=== PATIENT | male | born 1945 | race Caucasian/White ===

== ENCOUNTER → 2016-12-13 | Outpatient (CLI) | payer MEDICARE ==
[~2016-12-13] MED LIST: ADVIL,NUPRIN,M200 MG PO; ASPIR-LOW81 MG PO; ASPIRIN EC325 MG PO; ASPIRIN325 MG PO; Aspirin Chewable PO; CEFTIN500 MG PO; CLOPIDOGREL75 MG PO; COREG6.25 M1 PO; Coreg PO; GLUCOTROL5 MG PO; Glucotrol PO; HYZAAR 100-21 TABLET PO; LANTUS 10100 UNITS/ SC; LANTUS 3 M100 UNITS1 SC; LIPITOR40 MG PO; LISINOPRIL5 MG PO; METFORMIN HCL500 MG PO; PRAVASTATIN SOD40 MG PO; PROTONIX40 MG PO; Xanax PO
== END | disposition home or self-care (01) ==
LOC: CDC 14:29
DX: I25.2 Old myocardial infarction (principal); R94.31 Abnormal electrocardiogram [ECG] [EKG]
CPT/HCPCS: 93000

== ENCOUNTER 2017-03-28 14:42 | Inpatient (IN) | payer OTHER, MEDICARE ==
[~2017-03-28] VITALS: Ht 188 cm; Wt 97.7 kg
[2017-03-28 15:28] LABS: HEMATOCRIT 37.5 % (38.0-50.0); MCH 29.6 PG (29.0-34.0); MCHC 33.1 G/DL (30.0-36.0); MCV 89.5 FL (86-99); MEAN PLAT.VOLUME 9.1 uM^3 (9.0-12.4); PLATELET COUNT 282 K/uL (156-360); RBC DIS.WIDTH-CV 13.2 % (11.8-14.6); RBC DIS.WIDTH-SD 43.2 % (39-53); RED BLOOD COUNT 4.19 M/uL (4.00-5.50); WHITE BLOOD COUNT 8.8 K/uL (4.1-10.2)
[2017-03-28 15:36] LABS: CHLORIDE 108 mEq/L (99-109); SODIUM 134 mEq/L (136-147)
[2017-03-28 15:38] LABS: GLUCOSE 130 mg/dL (70-99)
[2017-03-28 15:39] LABS: ANION GAP 7 MEQ/L (2-14)
[2017-03-28 15:42] LABS: GFR ESTIMATE (CALCULATED) 37 mL/min/
[2017-03-28 15:43] LABS: UREA NITROGEN (BUN) 43 mg/dL (9-23)
[2017-03-28] MEDS ORDERED: LIPITOR10 MG PO (17:49)
[2017-03-28] MEDS ORDERED: COREG3.125 M1 PO (17:50)
[2017-03-28] MEDS ORDERED: ARICEPT5 MG PO (17:51)
[2017-03-28] MEDS ORDERED: LANTUS 3 M100 UNITS1 SC (17:55)
[2017-03-28] MEDS ORDERED: NEURONTIN600 MG PO (17:57)
[2017-03-28] MEDS ORDERED: LISINOPRIL10 MG PO (17:59)
[2017-03-28] MEDS ORDERED: MUPIROCIN22 GM TP (18:01)
[2017-03-28] MEDS ORDERED: NITROSTAT0.4 MG SL (18:02)
[2017-03-28] MEDS ORDERED: ZOLOFT50 MG PO (18:04)
[2017-03-28] MEDS ORDERED: NOVOLOG PE100 UNITS/ SC (18:05)
[2017-03-28] MEDS ORDERED: BACTRIM,SEPT1 TABLET PO (18:11)
[2017-03-28 19:22] LABS: SAMPLE HEMOLYSIS CHECK 0; SAMPLE ICTERIC CHECK 0; SAMPLE LIPEMIA CHECK 0
[2017-03-28 19:28] LABS: HDL CHOLESTEROL 31 MG/DL (Desirable>=40); LDL CHOLESTEROL 42 mg/dL (Desirable<100); NON-HDL CHOLESTEROL 64 mg/dL (Desirable<160); TOTAL CHOLESTEROL 95 mg/dL (Desirable<200); TRIGLYCERIDES 111 MG/DL (Normal: <150)
[2017-03-28 20:01] LABS: Estimated Average Glucose 194 mg/dL (70-123); HEMOGLOBIN A1c (GLYCOHEMOGLOB) 8.4 % HGB (Below 5.7)
[2017-03-28 20:32] LABS: ADD MIUA? YES; BILIRUBIN NEGATIVE; BLOOD SMALL; COLOR YELLOW ((YELLOW)); GLUCOSE (STRIP) 50; KETONES NEGATIVE; LEUKOCYTES NEGATIVE; NITRITE NEGATIVE; PROTEIN (STRIP) 30; SPECIFIC GRAVITY 1.014 (1.000-1.030); UROBILINOGEN 0.2 MG/DL (0.2-1.0)
[2017-03-28 20:53] LABS: EPITHELIAL CELLS RARE /HPF; MUCUS NONE SEEN /LPF; RED BLOOD CELLS 0-5 /HPF (0-5)
[2017-03-28 20:54] LABS: BACTERIA RARE /HPF
[2017-03-28 21:32] VITALS: BP 129/67
[2017-03-28 22:34] LABS: POINT-OF-CARE METER ID UU14174225
[2017-03-28 23:55] VITALS: BP 164/83
[2017-03-29 04:14] VITALS: BP 162/82
[2017-03-29 05:56] LABS: HEMATOCRIT 38.9 % (38.0-50.0); MCH 29.6 PG (29.0-34.0); MCHC 32.4 G/DL (30.0-36.0); MCV 91.3 FL (86-99); MEAN PLAT.VOLUME 9.1 uM^3 (9.0-12.4); PLATELET COUNT 280 K/uL (156-360); RBC DIS.WIDTH-CV 13.3 % (11.8-14.6); RBC DIS.WIDTH-SD 44.4 % (39-53); RED BLOOD COUNT 4.26 M/uL (4.00-5.50); WHITE BLOOD COUNT 7.4 K/uL (4.1-10.2)
[2017-03-29 06:39] LABS: ALKALINE PHOSPHATASE 52 IU/L (3-129); ANION GAP 8 MEQ/L (2-14); CHLORIDE 103 MEQ/L (99-109); GFR ESTIMATE (CALCULATED) 46 mL/min/; GLUCOSE 137 mg/dL (70-99); POTASSIUM 5.3 MEQ/L (3.7-5.4); SAMPLE HEMOLYSIS CHECK 0; SAMPLE ICTERIC CHECK 0; SAMPLE LIPEMIA CHECK 0; SODIUM 133 MEQ/L (136-147); TOTAL BILIRUBIN 0.4 MG/DL (0.0-1.0); UREA NITROGEN (BUN) 39 mg/dL (9-23)
[2017-03-29 07:28] VITALS: BP 111/63
[2017-03-29 11:40] VITALS: BP 103/60
[2017-03-29 11:56] LABS: POINT-OF-CARE METER ID UU13113717
[2017-03-29 15:02] VITALS: BP 116/57
[2017-03-29 16:48] LABS: POINT-OF-CARE METER ID UU13113717
[2017-03-29 17:16] LABS: HDL CHOLESTEROL 29 MG/DL (Desirable>=40); LDL CHOLESTEROL 35 mg/dL (Desirable<100); NON-HDL CHOLESTEROL 64 mg/dL (Desirable<160); TOTAL CHOLESTEROL 93 mg/dL (Desirable<200); TRIGLYCERIDES 147 MG/DL (Normal: <150)
[2017-03-29 20:05] VITALS: BP 121/65
[2017-03-29 21:17] LABS: POINT-OF-CARE METER ID UU14174225
[2017-03-30 00:06] VITALS: BP 93/51
[2017-03-30 03:41] VITALS: BP 82/52
[2017-03-30 06:10] LABS: EOSINOPHIL COUNT 0.1 K/uL (0-0.3); HEMATOCRIT 36.9 % (38.0-50.0); IMMATURE GRANULOCYTE (%) 0.5 % (0.0-0.7); INSTRUMENT ABS NEUTROPHIL CT 3.7 K/uL; LYMPHOCYTE COUNT 0.8 K/uL (1.0-2.8); MCHC 32.2 G/DL (30.0-36.0); MEAN PLAT.VOLUME 8.9 uM^3 (9.0-12.4); MONOCYTE (%) 16.1 % (3-12); MONOCYTE COUNT 0.9 K/uL (0-0.8); NEUTROPHIL (%) 66.8 % (45-76); NEUTROPHIL COUNT 3.7 K/uL (1.8-6.4); PLATELET COUNT 248 K/uL (156-360); RBC DIS.WIDTH-CV 13.3 % (11.8-14.6); RBC DIS.WIDTH-SD 43.9 % (39-53); WHITE BLOOD COUNT 5.5 K/uL (4.1-10.2)
[2017-03-30 06:37] LABS: ANION GAP 6 MEQ/L (2-14); CHLORIDE 106 MEQ/L (99-109); GFR ESTIMATE (CALCULATED) 58 mL/min/; GLUCOSE 104 mg/dL (70-99); POTASSIUM 5.1 MEQ/L (3.7-5.4); SAMPLE HEMOLYSIS CHECK 0; SAMPLE ICTERIC CHECK 0; SAMPLE LIPEMIA CHECK 0; SODIUM 135 MEQ/L (136-147); UREA NITROGEN (BUN) 30 mg/dL (9-23)
[2017-03-30 07:54] VITALS: BP 106/64
[2017-03-30 11:40] VITALS: BP 110/65
[2017-03-30 12:32] LABS: POINT-OF-CARE METER ID UU13113717
[2017-03-30] MEDS ORDERED: DOXYCYCLINE HY100 M3 PO (13:44)
[2017-03-30] MEDS ORDERED: PRAVASTATIN SOD40 MG PO (13:44)
== END 2017-03-30 15:15 | disposition home or self-care (01) | DRG 65 ==
LOC: EME 14:42 → 5SOUTH 18:23 → EDOF 18:23 → ENRESERV 18:23 → 5SOUTH 21:12 → ENPENDDIS 03-30 → 5SOUTH 03-30 15:15
PROVIDERS: Hospitalist; Internal Medicine
DX: I63.541 Cerebral infarction due to unspecified occlusion or stenosis of right cerebellar artery (principal); N17.9 Acute kidney failure, unspecified; E87.0 Hyperosmolality and hypernatremia; C85.90 Non-Hodgkin lymphoma, unspecified, unspecified site; R27.0 Ataxia, unspecified; E11.51 Type 2 diabetes mellitus with diabetic peripheral angiopathy without gangrene; F39 Unspecified mood [affective] disorder; E78.5 Hyperlipidemia, unspecified; R47.81 Slurred speech; I10 Essential (primary) hypertension; T63.301D Toxic effect of unspecified spider venom, accidental (unintentional), subsequent encounter; I25.10 Atherosclerotic heart disease of native coronary artery without angina pectoris; J44.9 Chronic obstructive pulmonary disease, unspecified; D64.9 Anemia, unspecified; E11.65 Type 2 diabetes mellitus with hyperglycemia; Z95.1 Presence of aortocoronary bypass graft; I69.354 Hemiplegia and hemiparesis following cerebral infarction affecting left non-dominant side; G93.89 Other specified disorders of brain; I44.0 Atrioventricular block, first degree; I45.10 Unspecified right bundle-branch block; I65.29 Occlusion and stenosis of unspecified carotid artery; Z80.8 Family history of malignant neoplasm of other organs or systems; Z79.02 Long term (current) use of antithrombotics/antiplatelets; Z79.4 Long term (current) use of insulin; Z87.442 Personal history of urinary calculi; Z87.891 Personal history of nicotine dependence; R29.810 Facial weakness; I69.398 Other sequelae of cerebral infarction; R27.8 Other lack of coordination; R13.10 Dysphagia, unspecified; Z79.82 Long term (current) use of aspirin; I25.2 Old myocardial infarction
CPT/HCPCS: 70450; 70551; 71020; 80048; 80053; 80061; 81003; 82436; 82948; 83036; 84133; 84300; 85025; 85027; 87070; 87075; 87205; 92523 GN; 92610 GN; 93005; 93306; 93880; 99281; 99285; J1644; J1815; J2405; J7030

== ENCOUNTER → 2017-05-19 | Outpatient (CLI) | payer MEDICARE ==
[~2017-05-19] MED LIST changes: +ARICEPT5 MG PO; +BACTRIM,SEPT1 TABLET PO; +COREG3.125 M1 PO; +DOXYCYCLINE HY100 M3 PO; +LIPITOR10 MG PO; +LISINOPRIL10 MG PO; +MUPIROCIN22 GM TP; +NEURONTIN600 MG PO; +NITROSTAT0.4 MG SL; +NOVOLOG PE100 UNITS/ SC; +ZOLOFT50 MG PO
== END | disposition home or self-care (01) ==
LOC: CDC 14:26
DX: Z01.810 Encounter for preprocedural cardiovascular examination (principal); I25.2 Old myocardial infarction; R94.31 Abnormal electrocardiogram [ECG] [EKG]
CPT/HCPCS: 93000

== ENCOUNTER 2017-10-27 14:13 | Emergency (ER) | payer OTHER, MEDICARE ==
[~2017-10-27] VITALS: Ht 188 cm; Wt 51.4 kg
[2017-10-27 15:04] LABS: BASOPHIL (%) 0.6 % (0-1); BASOPHIL COUNT 0.1 K/uL (0-0.1); EOSINOPHIL (%) 2.2 % (0-5); EOSINOPHIL COUNT 0.2 K/uL (0-0.3); HEMATOCRIT 34.2 % (38.0-50.0); HEMOGLOBIN 11.1 G/DL (12.5-16.6); IMMATURE GRANULOCYTE (%) 0.5 % (0.0-0.7); LYMPHOCYTE (%) 7.9 % (15-42); LYMPHOCYTE COUNT 0.6 K/uL (1.0-2.8); MCH 28.4 PG (29.0-34.0); MCHC 32.5 G/DL (30.0-36.0); MCV 87.5 FL (86-99); MONOCYTE (%) 13.7 % (3-12); MONOCYTE COUNT 1.1 K/uL (0-0.8); NEUTROPHIL (%) 75.1 % (45-76); NEUTROPHIL COUNT 5.8 K/uL (1.8-6.4); PLATELET COUNT 324 K/uL (156-360); RBC DIS.WIDTH-CV 15.4 % (11.8-14.6); RBC DIS.WIDTH-SD 49.1 % (39-53); RED BLOOD COUNT 3.91 M/uL (4.00-5.50); WHITE BLOOD COUNT 7.8 K/uL (4.1-10.2)
[2017-10-27 15:12] LABS: INTER. NORMALIZED RATIO 1.2
[2017-10-27 15:14] LABS: PTT 33.6 SEC (25-37)
[2017-10-27 15:18] LABS: ALBUMIN 3.6 g/dL (3.2-4.8); CHLORIDE 106 mEq/L (99-109); MAGNESIUM 2.3 mg/dL (1.3-2.7); POTASSIUM 4.4 mEq/L (3.7-5.4); SODIUM 137 mEq/L (136-147)
[2017-10-27 15:20] LABS: GLUCOSE 135 mg/dL (70-99); TOTAL PROTEIN 7.3 g/dL (6.4-8.3)
[2017-10-27 15:22] LABS: TOTAL BILIRUBIN 0.3 mg/dL (0.0-1.0)
[2017-10-27 15:24] LABS: ALKALINE PHOSPHATASE 67 IU/L (3-129); CREATININE 1.3 mg/dL (0.6-1.3); GFR ESTIMATE (CALCULATED) 58 mL/min/ (58.99-99999)
[2017-10-27 15:25] LABS: TROP-I INTERPRETATION NEGATIVE; TROPONIN-I < 0.01 ng/mL (0.0-0.30); UREA NITROGEN (BUN) 29 mg/dL (9-23)
[2017-10-27 15:26] LABS: AST (GOT) 8 IU/L (2-34)
[2017-10-27 15:27] LABS: ALT (GPT) 9 IU/L (3-49); CREATINE KINASE 30 IU/L (1-294); TOTAL CK 30 IU/L (1-294)
[2017-10-27 15:33] LABS: CK-MB 1.2 ng/mL (0.0-4.9)
[2017-10-27] MEDS ORDERED: MECLIZINE HCL25 MG PO (19:24)
[2017-10-27 20:03] VITALS: BP 121/65
== END 2017-10-27 20:04 | disposition home or self-care (01) ==
LOC: EME 14:13
PROVIDERS: Emergency Medicine
DX: R42 Dizziness and giddiness (principal); I10 Essential (primary) hypertension; E11.9 Type 2 diabetes mellitus without complications; I25.10 Atherosclerotic heart disease of native coronary artery without angina pectoris; I25.2 Old myocardial infarction; F32.9 Major depressive disorder, single episode, unspecified; Z86.73 Personal history of transient ischemic attack (TIA), and cerebral infarction without residual deficits; Z87.442 Personal history of urinary calculi; Z87.891 Personal history of nicotine dependence; Z95.1 Presence of aortocoronary bypass graft; Z79.4 Long term (current) use of insulin; Z79.02 Long term (current) use of antithrombotics/antiplatelets; Z88.5 Allergy status to narcotic agent
CPT/HCPCS: 70450; 70551; 71045; 80053; 82550; 82553; 83735; 84484; 85025; 85610; 85730; 93005; 99281; 99285